=== PATIENT | male | born 1990 | race Caucasian/White ===

== ENCOUNTER 2020-10-14 17:38 | Emergency (ER) | payer OTHER, SELFPAY ==
[2020-10-14 19:25] LABS: Basophils % 0.8 % (0-1.3); Hematocrit 43.2 % (39.6-49.0); Lymphocytes % 13.2 % (15.3-44.8); MPV 9.3 fL (7.6-11.3); RBC Red Blood Cell Count 5.05 M/uL (4.33-5.43)
[2020-10-14 19:38] LABS: BUN Blood Urea Nitrogen 9 mg/dL (7-18); Bicarbonate 26 mmol/L (21-32); Glucose Level 100 mg/dL (74-106); Potassium 3.9 mmol/L (3.5-5.1); Sodium Level 140 mmol/L (136-145)
[2020-10-14] MEDS ORDERED: MORPHINE 4 MG/ML SYR ONE ×2 (19:46→23:48)
[2020-10-14] MEDS ORDERED: ONDANSETRON 4 MG/2 ML VIAL ONE (19:46)
[2020-10-14] MEDS ORDERED: LIDOCAINE VISCOUS 2% SOLN 15 ML UDC ONE (20:41)
[2020-10-14] MEDS ORDERED: NA CHLORIDE 0.9% 1,000 ML ONE (20:56)
[2020-10-14 22:35] LABS: Urine Blood NEGATIVE (Negative); Urine Glucose NEGATIVE (Negative); Urine Protein 1+ (Negative); Urine Specific Gravity >1.030 (1.005-1.030)
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
[2020-10-14 23:55] VITALS: BP 145/76; TEMP 98.9; O2SAT 95
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
== END 2020-10-14 23:48 | disposition home or self-care (01) ==
LOC: ER 17:38
DX: S42.191A Fracture of other part of scapula, right shoulder, initial encounter for closed fracture (principal); V43.52XA Car driver injured in collision with other type car in traffic accident, initial encounter; F17.210 Nicotine dependence, cigarettes, uncomplicated
CPT/HCPCS: 85025; 80048; 36415; 86900; 86850; 86901; 81003; 70450; 72125; 71260; 74177; Q9967; J7030; J2405; 99284